=== PATIENT | female | born 1930 | race Hispanic/Latino ===

== ENCOUNTER 2018-01-25 16:43 | Emergency (ER) | payer MEDICARE, OTHER ==
[~2018-01-25] VITALS: Ht 160 cm; Wt 78.9 kg
[~2018-01-25 16:43] MED LIST: ALLOPURINOL300 MG PO; ALPRAZOLAM0.25 MG PO; AMBIEN10 MG PO; AMLODIPINE BESY10 MG PO; ATORVASTATIN CA10 MG PO; BACLOFEN10 MG PO; CARVEDILOL12.5 MG PO; CIPRO500 MG PO; COLACE100 MG PO; COLCRYS0.6 MG PO; CYCLOBENZAPRINE10 MG PO; DULCOLAX5 MG PO; EX-LAX5 MG PO; FENOFIBRATE145 MG PO; FENOFIBRATE160 MG PO; FLAGYL250 MG PO; FUROSEMIDE40 MG PO; GABAPENTIN300 MG PO; GLIPIZIDE5 MG PO; KETOTIFEN FUMARA5 ML; LEVAQUIN500 MG PO; LOSARTAN POTAS100 MG PO; NOVOLIN 70100 UNITS/ SQ; NOVOLOG100 UNITS/ SQ; NOVOLOG100 UNITS1; OMEPRAZOLE40 MG PO; PACERONE200 MG PO; PANTOPRAZOLE SO40 MG PO; PLAVIX75 MG PO; RANITIDINE HCL150 MG PO; SIMVASTATIN40 MG PO; TRAZODONE HCL50 MG PO; TYLENOL WITH C1 EACH PO; ULTRAM50 MG PO; ZOLPIDEM TARTRA10 MG PO; [UNRECOGNIZED DRUG - OTHER] PO
--- NOTE | 2018-01-25 18:03 | Diagnostic Imaging Report ---
Portable chest x-ray INDICATION: Weakness for one week COMPARISON: Chest x-ray 10/09/2016 FINDINGS: Frontal view of the chest obtained at 1730 hours. The cardiac silhouette is normal. Aortic arch is ectatic. The main pulmonary artery is prominent. The intrapulmonary vascular markings are normal. The lungs demonstrate stable hyperinflation. No mass or infiltrate. The costophrenic angles are sharp. There is no pneumothorax. The osseous structures are intact and normal in morphology. IMPRESSION: 1. Stable pulmonary hyperinflation and aortic ectasia. A component of pulmonary artery hypertension is suspected. 2. No new cardiomegaly findings. Signed by: Dr. Naveen Armenta MD on 01/25/2018 5:59 PM
[2018-01-25] MEDS ORDERED: ALPRAZOLAM0.25 M1 PO (18:09)
[2018-01-25] MEDS ORDERED: MAPROTILINE HCL75 MG PO (18:09)
[2018-01-25] MEDS ORDERED: CILOSTAZOL100 MG PO (18:09)
[2018-01-25] MEDS ORDERED: ULTRAM50 MG PO (18:09)
[2018-01-25 18:16] LABS: BASOPHILS # (AUTO) 0.1 (0.0-0.1); BASOPHILS % 0.7 % (0.0-1.0); EOSINOPHILS # (AUTO) 0.2 (0.0-0.4); EOSINOPHILS % 2.3 % (0.0-6.0); HEMATOCRIT 43.9 % (34.2-44.1); HEMOGLOBIN 14.1 g/dL (12.0-16.0); LYMPHOCYTES % 24.3 % (18.0-39.1); MEAN CORPUSCULAR HEMOGLOBIN 29.7 pg (28-32); MEAN CORPUSCULAR HGB CONC 32.1 g/dL (31-35); MEAN CORPUSCULAR VOLUME 92.6 fL (81-99); MONOCYTES # (AUTO) 0.6 (0.2-0.8); MONOCYTES % 7.6 % (4.4-11.3); NEUTROPHILS # (AUTO) 5.3 (2.1-6.9); NEUTROPHILS % 64.7 % (38.7-80.0); PLATELET COUNT 297 x10e3/uL (140-360); RED BLOOD COUNT 4.74 x10e6/uL (3.6-5.1); RED CELL DISTRIBUTION WIDTH 14.7 % (11.7-14.4)
[2018-01-25 18:25] LABS: BILIRUBIN,URINE NEGATIVE (NEGATIVE); CLARITY,URINE CLOUDY (CLEAR); COLOR,URINE YELLOW (YELLOW); KETONES,URINE NEGATIVE (NEGATIVE); LEUKOCYTE ESTERASE ,URINE NEGATIVE (NEGATIVE); NITRITE,URINE POSITIVE (NEGATIVE); PROTEIN,URINE DIPSTICK NEGATIVE (NEGATIVE); URINE UROBILINOGEN 0.2 mg/dL (0.2 - 1)
[2018-01-25 18:35] LABS: ALANINE AMINOTRANSFERASE 11 IU/L (0-55); ALBUMIN 3.9 g/dL (3.5-5.0); ALBUMIN/GLOBULIN RATIO 1.2 (0.8-2.0); ALKALINE PHOSPHATASE 66 IU/L (40-150); ANION GAP 13.7 mmol/L (8-16); BLOOD UREA NITROGEN 32 mg/dL (7-26); BUN/CREATININE RATIO 27 (6-25); CALCIUM 9.8 mg/dL (8.4-10.2); CARBON DIOXIDE 25 mmol/L (22-29); CHLORIDE 108 mmol/L (98-107); CREATINE KINASE 69 IU/L (29-168); CREATININE, SERUM 1.18 mg/dL (0.57-1.11); EST GLOMERULAR FILTRATION RATE 43 ML/MIN (60-); GLUCOSE 102 mg/dL (74-118); POTASSIUM 4.7 mmol/L (3.5-5.1); SODIUM 142 mmol/L (136-145)
[2018-01-25 18:40] LABS: BACTERIA,URINE MANY /HPF; EPITHELIAL CELLS,URINE MODERATE /LPF; RBC,URINE 0-5 /HPF (0-5); WBC,URINE (MAN) 0-5 /HPF (0-5)
[2018-01-25] MEDS ORDERED: SODIUM CHLORIDE 0.9% 500ML 500 ML IV ONE (18:45)
[2018-01-25] MEDS ORDERED: CEFTRIAXONE SOD 1 GM VIAL IV ONE (18:45)
[2018-01-25 19:17] VITALS: BP 153/91
== END 2018-01-25 19:34 | disposition home or self-care (01) ==
LOC: ER 16:43
DX: R53.1 Weakness (principal); N30.90 Cystitis, unspecified without hematuria; I10 Essential (primary) hypertension; E78.00 Pure hypercholesterolemia, unspecified; I48.91 Unspecified atrial fibrillation; F32.9 Major depressive disorder, single episode, unspecified
CPT/HCPCS: 36415; 71045; 80053; 81001; 82550; 82553; 84443; 84484; 85025; 87086; 87186; 93005; 99284; J0696; J7040

== ENCOUNTER 2018-03-16 20:29 | Emergency (ER) | payer MEDICARE, OTHER ==
[~2018-03-16] VITALS: Ht 160 cm; Wt 78.9 kg
[~2018-03-16 20:29] MED LIST changes: +ALPRAZOLAM0.25 M1 PO; +CILOSTAZOL100 MG PO; +MAPROTILINE HCL75 MG PO
--- NOTE | 2018-03-17 00:08 | Diagnostic Imaging Report ---
EXAMINATION: Head and cervical spine CT without contrast. HISTORY: Head and neck pain, hypertension, status post fall 3 days ago COMPARISON: None. TECHNIQUE: Multidetector axial images were obtained without contrast from the foramen magnum to the vertex and through the cervical spine. The images were reconstructed using brain and bone algorithms. Thin section brain images were reformatted into coronal and sagittal planes. HEAD CT FINDINGS: Skull: No lytic or blastic lesions. No fractures. 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 No mass, hemorrhage or CT evidence of acute vascular insult. Brain volume: Normal for age. Ventricles: No hydrocephalus or displacement. Arteries: No density suggestive of thrombus. Dural sinuses: No abnormal density. Extra-axial spaces: No abnormal density. Foramen magnum: No mass, Chiari malformation, or basilar invagination. Sella: No obvious mass. Paranasal/mastoid sinuses: Imaged portions unremarkable. CERVICAL SPINE CT FINDINGS: Alignment:Normal alignment and lordosis. Minimal degenerative spondylolisthesis at C3-C4 and C4-C5. Soft tissues: Partially visualized enlarged right lobe of the thyroid gland with multiple mostly hypoattenuating and some calcified nodules. Vertebrae: Normal height and density. No acute fracture, infection or neoplasm. Degenerative changes: C5-C6: Disc osteophyte, uncovertebral and facet arthrosis. Moderate spinal canal and right foraminal stenosis. Severe left foraminal stenosis. C6-C7: Disc osteophyte complex formation, uncovertebral and facet arthrosis. Mild bilateral foraminal stenoses. C7-T1: Normal IMPRESSION: Head CT: 1. No acute postraumatic intracranial hemorrhage. 2. Unchanged chronic microvascular ischemic changes. Cervical spine CT: 1. No acute fractures or dislocations. 2. Chronic degenerative changes as described. Note: Acute post traumatic spinal cord, vascular or ligamentous injury cannot adequately be assessed with CT. Signed by: Dr. Angeli Scott M.D. on 03/17/2018 12:04 AM
[2018-03-17 00:27] VITALS: BP 166/108
== END 2018-03-17 00:46 | disposition home or self-care (01) ==
LOC: ER 20:29
DX: G44.1 Vascular headache, not elsewhere classified (principal); M54.2 Cervicalgia; W01.0XXD Fall on same level from slipping, tripping and stumbling without subsequent striking against object, subsequent encounter; I10 Essential (primary) hypertension; E78.5 Hyperlipidemia, unspecified; F41.9 Anxiety disorder, unspecified
CPT/HCPCS: 70450; 72125; 99283

== ENCOUNTER 2019-03-24 16:47 | Emergency (ER) | payer MEDICARE, OTHER ==
[~2019-03-24] VITALS: Ht 160 cm; Wt 78.9 kg
[~2019-03-24 16:47] MED LIST changes: +AMIODARONE HCL200 MG PO
--- NOTE | 2019-03-24 20:25 | Diagnostic Imaging Report ---
EXAMINATION: Head CT without contrast. HISTORY:Status post fall. COMPARISON:CT brain from 03/16/2018. TECHNIQUE: Multidetector axial images were obtained from the foramen magnum to the vertex without contrast. The images were reconstructed using brain and bone algorithms. Thin section brain images were reformatted into coronal and sagittal planes. Dose modulation, iterative reconstruction, and/or weight based adjustment of the mA/kV was utilized to reduce the radiation dose to as low as reasonably achievable. Intravenous contrast: None IMAGE QUALITY: Acceptable. FINDINGS: Skull/scalp: No lytic or blastic. lesions. No surgical changes. Parenchyma: Unchanged nonspecific bilateral frontoparietal patchy white matter hypodensity are likely related to small vessel ischemic changes. Unchanged chronic lacunar infarct in right putamen. No acute hemorrhage, mass or acute major vascular territorial infarct. Arteries: No density suggestive of thrombosis. Atherosclerotic calcification in bilateral carotid siphon and V4 segment of the vertebral arteries. Dural sinuses: No abnormal density suggestive of thrombosis. Ventricles: Mild compensated dilatation due to volume loss. No acute hydrocephalus. Extra-axial spaces: No abnormal density. Brain volume: Generalized age-related cerebral volume loss. Craniocervical junction: No mass, Chiari malformation, or basilar invagination. Sella: No mass. Paranasal/mastoid sinuses: Imaged portions unremarkable. IMPRESSION: 1. No acute intracranial abnormality. 2. No change since CT head from 03/16/2018. Chronic findings: 1. Generalized age-related cerebral volume loss. 2. Mild to moderate supratentorial white matter microvascular ischemic changes. 3. 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 Signed by: Dr. Khushboo Peter M.D. on 03/24/2019 8:21 PM
--- NOTE | 2019-03-24 20:28 | Diagnostic Imaging Report ---
EXAM: CT Chest WITHOUT contrast INDICATION: Fall. Chest pain COMPARISON: 01/06/2016 TECHNIQUE: Chest was scanned utilizing a multidetector helical scanner from the lung apex through the level of the adrenal glands without administration of IV contrast. Absence of intravenous contrast decreases sensitivity for detection of lymphadenopathy and vascular pathology. Coronal and sagittal reformations were obtained. Routine protocol was performed. IV CONTRAST: None COMPLICATIONS: None RADIATION DOSE: Total DLP: 439 mGy*cm Estimated effective dose: (DLP x 0.014 x size factor) mSv CTDIvol has been reviewed. It is below the limits set by the Radiation Protocol Committee (RPC). Dose modulation, iterative reconstruction, and/or weight based adjustment of the mA/kV was utilized to reduce the radiation dose to as low as reasonably achievable. FINDINGS: LINES/ TUBES: None. LUNGS AND AIRWAYS: Minimal bilateral upper lobe emphysematous changes. 3 mm pleural-based nodule in the right middle lobe anteriorly. 5 mm pleural-based irregular nodule in the right middle lobe posterolaterally. Bibasilar scarring associated with mild bronchiectasis. 5 mm noncalcified pleural-based nodule in the left lung base posterolateral lung. 3 mm noncalcified pleural-based nodule in the right middle lobe. 5 mm nodule with adjacent scarring in the left mid lung best seen on series 3 image 40 and 41. Likely focal scarring/atelectasis in the anterior inferior left lung best seen on series 3 image 66 and 67. Airways are normal. PLEURA: Bilateral pleural-parenchymal scarring. No pleural effusion or pneumothorax. HEART AND MEDIASTINUM: Enlargement of the right thyroid lobe with foci of calcification and heterogeneous attenuation suggestive of the presence of nodules left border. Extensive atherosclerotic calcifications of the aortic arch with mild ectasia of the ascending aorta up to 4.3 cm in diameter.. Pulmonary arteries are normal in caliber. Mild calcifications of the aortic and mitral valves. No mediastinal, hilar or axillary lymphadenopathy. The heart is normal in size.. There is no pericardial effusion. UPPER ABDOMEN: Limited non-contrast views of the upper abdomen show no abnormality. The adrenal glands are normal. BONES: Multilevel degenerative disc disease and spondylosis of the thoracic spine. Several healing left rib fractures are seen. Additionally, there is an acute appearing left fourth lateral rib fracture, as well as a left anterior lateral fifth, sixth and seventh rib fracture. Several acute-appearing right rib fractures are also seen. SOFT TISSUES: Nonspecific punctate calcifications throughout the breast parenchyma bilaterally. IMPRESSION: Several healing left rib fractures are seen. Additionally, there is an acute appearing left fourth lateral rib fracture, as well as a left anterior lateral fifth, sixth and seventh rib fracture. Several acute-appearing right rib fractures are also seen. 1. Minimal bilateral upper lobe emphysematous changes. 2. A few subcentimeter pleural-based pulmonary nodules are nonspecific. Suggest CT chest nodule protocol in 6 months to evaluate stability as per Fleischner criteria. 3. Bibasilar fibrotic changes with mild bronchiectasis. 4. Enlarged, heterogeneous right thyroid lobe. Suggest correlation with thyroid function tests and dedicated ultrasound of thyroid. Signed by: Dr. Ben Magana M.D. on 03/24/2019 8:25 PM
--- NOTE | 2019-03-24 20:35 | Diagnostic Imaging Report ---
History: Status post fall. Comparison studies: CT cervical spine from 03/16/2018. Technique: Axial images were obtained through the cervical region.. Coronal and sagittal images reconstructed from the axial data. Dose modulation, iterative reconstruction, and/or weight based adjustment of the mA/kV was utilized to reduce the radiation dose to as low as reasonably achievable. Intravenous contrast: None Findings: Fractures: None. Soft tissue injuries: None. Atlantoaxial articulation: Intact. Alignment: Loss of normal cervical lordosis is either positional or due to muscle spasm. No scoliosis. Unchanged 1.5 mm grade 1 anterolisthesis at C4-C5. Cervicomedullary junction: No abnormalities. The foramen magnum is patent. Soft tissues: Atherosclerotic calcification in bilateral carotid siphon. Heterogeneously enlarged right lobe of the thyroid gland with multifocal hypodense and calcified nodules, is partially visualized, approximately measures 3.1 x 2.7 x 2.5 cm Vertebrae: No fractures, infection or neoplasm. Degenerative changes: C2-C3: Moderate left foraminal stenosis due to facet and uncovertebral arthrosis. C3-C4: Mild bilateral foraminal stenosis due to facet and uncovertebral arthrosis. C4-C5: Mild right and moderate left foraminal stenosis due to facet and uncovertebral arthrosis C5-C6: Moderate degenerative disc disease. Posterior disc osteophyte complex results in mild canal stenosis. Mild right and moderate left foraminal stenosis due to facet and uncovertebral arthrosis. C6-C7: Moderate degenerative disc disease. Posterior disc osteophyte complex without significant canal stenosis. Mild bilateral foraminal stenosis due to uncovertebral arthrosis. C7-T1: Moderate right foraminal stenosis due to uncovertebral arthrosis. IMPRESSION: 1. No acute cervical spine fracture or dislocation. Loss of normal cervical lordosis is either positional or due to muscle spasm. 2. Ligament, spinal cord and or vascular abnormalities cannot be excluded on the basis of this examination. 3. Cervical spondylosis as detailed above. Signed by: Dr. Khushboo Peter M.D. on 03/24/2019 8:32 PM
[2019-03-24] MEDS ORDERED: LIDOCAINE 5% PATCH TP ONE (21:15)
== END 2019-03-24 22:27 | disposition home or self-care (01) ==
LOC: ER 16:47
DX: S00.83XA Contusion of other part of head, initial encounter (principal); S22.43XA Multiple fractures of ribs, bilateral, initial encounter for closed fracture; W01.0XXA Fall on same level from slipping, tripping and stumbling without subsequent striking against object, initial encounter; Y93.01 Activity, walking, marching and hiking; Y92.008 Other place in unspecified non-institutional (private) residence as the place of occurrence of the external cause; I10 Essential (primary) hypertension; E78.5 Hyperlipidemia, unspecified; F41.9 Anxiety disorder, unspecified; I48.91 Unspecified atrial fibrillation
CPT/HCPCS: 70450; 71250; 72125; 99283